=== PATIENT | male | born 1965 ===

== ENCOUNTER 2022-04-04 20:50 | Inpatient (IN) | payer MEDICAID ==
[~2022-04-04] VITALS: Ht 182.9 cm; Wt 61.1 kg
--- NOTE | 2022-04-04 21:39 | NUR ---
NURSE SPOKE WITH PT'S MOTHER, LIZETH, AT [phone] TO CONFIRM PT'S ALLERGIES AND CURRENT MEDICATIONS. MOTHER STATED THAT PT IS SUPPOSED TO BE TAKING RISPERIDONE 4 MG EVERY NIGHT, BUT STATES HE HASN'T TAKEN IT "FOR MONTHS". PT HAS NO ALLERGIES, PER HIS MOTHER. PT IS REFUSING TO COOPERATE WITH NURSING STAFF, WILL NOT GIVEN ANY INFORMATION ABOUT HIS HISTORY, MEDS, ETC.
[2022-04-04] MEDS ORDERED: LORazepam 2 mg/ml vial IM ONE (22:15)
[2022-04-04] MEDS ORDERED: haloperidol lactate 5mg/ml inj IM ONE (22:15)
[2022-04-04] MEDS ORDERED: diphenhydrAMINE 50 mg/ml inj IM ONE (22:15)
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
[2022-04-04 22:43] LABS: BASOPHILS # (AUTO) 0.1 X10'3 (0-0.2); EOSINOPHILS # (AUTO) 0.1 X10'3 (0-0.9); HEMATOCRIT 40.5 % (42.0-52.0); HEMOGLOBIN 13.5 g/dl (14.0-17.9); MEAN CORPUSCULAR HEMOGLOBIN 32.5 PG (27.0-31.0); MEAN CORPUSCULAR HGB CONC 33.4 g/dL (33.0-36.5); RED BLOOD COUNT 4.16 X10'6 (4.70-6.10)
[2022-04-04 22:45] LABS: BASOPHILS % (AUTO) 1.1 % (0-1); LYMPHOCYTES # (AUTO) 2.1 X10'3 (1.1-4.8); LYMPHOCYTES % (AUTO) 16.4 % (21-51); MEAN CORPUSCULAR VOLUME 97.4 FL (78-98); MONOCYTES # (AUTO) 1.5 X10'3 (0-0.9); MONOCYTES % (AUTO) 11.2 % (2-12); NEUTROPHILS # (AUTO) 9.2 X10'3 (1.8-7.7); NEUTROPHILS % (AUTO) 70.3 % (42-75); PLATELET COUNT 324 X10'3 (140-440)
[2022-04-04 22:56] LABS: CLARITY,URINE CLEAR (Clear); COLOR,URINE YELLOW (Yellow); GLUCOSE, URINE NEGATIVE (Neg); KETONES,URINE NEGATIVE (Neg); LEUKOCYTE ESTERASE ,URINE NEGATIVE (Neg); NITRITES, URINE NEGATIVE (Neg); OCCULT BLOOD,URINE NEGATIVE (Neg); PROTEIN,URINE NEGATIVE (Neg); UROBILINOGEN,URINE 0.2 E.U/dL (0.2-1.0)
[2022-04-04 22:58] LABS: ALANINE AMINOTRANSFERASE 28 U/L (12-78); ALBUMIN/GLOBULIN RATIO 1.2 (1.1-1.5); ALKALINE PHOSPHATASE 85 IU/L (46-116); ANION GAP 10 (8-16); ASPARTATE AMINO TRANSFERASE 39 U/L (10-37); BILIRUBIN,TOTAL 0.3 MG/DL (0.1-1.0); BLOOD UREA NITROGEN 19 MG/DL (7-18); CALCIUM 9.1 MG/DL (8.5-10.1); CHLORIDE 105 MMOL/L (99-107); CREATININE 1.12 MG/DL (0.60-1.10); GLUCOSE 111 MG/DL (70-104); POTASSIUM 4.1 MMOL/L (3.5-5.1); SODIUM 142 MMOL/L (135-145); TOTAL CARBON DIOXIDE 27.5 MMOL/L (24-32); TOTAL PROTEIN 7.3 G/DL (6.4-8.2); eGFR 67 ML/MIN
[2022-04-04 23:00] LABS: PLATELET ESTIMATE NORMAL
[2022-04-04 23:03] LABS: UA COLLECTION TYPE URINAL
--- NOTE | 2022-04-04 23:05 | NUR ---
The patient appears to be sleeping
[2022-04-04 23:07] LABS: BURR CELLS 1+
[2022-04-04 23:08] LABS: URINE AMPHETAMINE SCREEN NEGATIVE (Neg); URINE BARBITUATE SCREEN NEGATIVE (Neg); URINE BENZODIAZEPINES SCREEN NEGATIVE (Neg); URINE CANNABINOID SCREEN POSITIVE (Neg); URINE COCAINE SCREEN NEGATIVE (Neg); URINE METHADONE SCREEN NEGATIVE (Neg); URINE OPIATE SCREEN NEGATIVE (Neg); URINE PHENCYCLIDINE SCREEN NEGATIVE (Neg)
[2022-04-04 23:08] LABS: ANISOCYTOSIS 1+
--- NOTE | 2022-04-04 23:53 | NUR ---
BP 125/83
--- NOTE | 2022-04-05 01:23 | NUR ---
The patient appears to be sleeping
--- NOTE | 2022-04-05 03:01 | NUR ---
The patient appears to be sleeping
--- NOTE | 2022-04-05 04:52 | NUR ---
The patient appears to be sleeping
--- NOTE | 2022-04-05 13:01 | NUR ---
Althea from [facility] called for a nurse to nurse. Pt requesting a shower, given shower cap and wiped to clean up in bathroom.
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
--- NOTE | 2022-04-05 19:43 | NUR ---
The patient has been resting on his bed and can occassionally having conversations with people who are not there. He is declining offer of medications at this time.
--- NOTE | 2022-04-05 20:39 | NUR ---
The patient appears to be sleeping
--- NOTE | 2022-04-05 22:04 | NUR ---
The patient appears to be sleeping
--- NOTE | 2022-04-05 23:37 | NUR ---
The patient appears to be sleeping but restlessly at times
--- NOTE | 2022-04-06 01:32 | NUR ---
The patient has been up and down in bed. He is quiet and pleasant
--- NOTE | 2022-04-06 05:20 | NUR ---
The patient has been resting on his bed but awake. He has slept poorly during the night
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
[2022-04-06] MEDS: nicotine 14mg patch - 24hr TD SCH (08:22)
--- NOTE | 2022-04-06 10:10 | NUR ---
The patient is resting on his bed watching tv and drinking coffee. At times he can be heard talking to people who are not there. He has not had any threatening behaviors.
--- NOTE | 2022-04-06 10:53 | NUR ---
The patient is increasingly restless. He is wanting to go home. He is aware that he is on a 5150 hold and doesn't want to have anything to do with the "gang" here.
--- NOTE | 2022-04-06 12:24 | NUR ---
Pt sitting up in bed, eating lunch. Pt repeatedly asking questions about when he can leave, making statements that he needs to speak to his laywer, etc.
--- NOTE | 2022-04-06 14:00 | NUR ---
Pt laying supine, eyes are closed. Respirations are even and unlabored. Pt in no acute distress.
--- NOTE | 2022-04-06 15:54 | NUR ---
Phone call from [facility], pt has been accepted to center for behavioral health by Dr. Valdes at 1545. Anticipated acceptance time is 1999 this evening.
--- NOTE | 2022-04-06 16:36 | NUR ---
Pt sitting up in bed watching television. He called his mother a little bit ago. Pt in no acute distress.
--- NOTE | 2022-04-06 17:33 | NUR ---
Pt up to the restroom. Pt now back in bed, sitting up, watching television.
--- NOTE | 2022-04-06 18:10 | NUR ---
Pt sitting up in bed eating dinner. Pt in no acute distress.
--- NOTE | 2022-04-06 20:27 | NUR ---
Received patient at 1900. Patient was pacing around unit asking when he could go home. Patient became agitated when told he could not leave yet. Patient has been accepted upstairs to the mental health floor. Patient was moved to main ER due to short staff. [facility] nurse came down to talk to patient about going upstairs and patient was receptive and approved. Currently working on discharging patient to [facility] behavoiral health floor.
--- NOTE | 2022-04-06 20:52 | NUR ---
SPOKE TO NURSE OF THIS PT. (GASTON OGLESBY) SHE STATED THAT STAFF ATTEMPTED TO MEDICATE WITH PO ATIVAN EARLIER AND PT. REFUSED.
[2022-04-06 21:00] VITALS: BP 167/98
[2022-04-06] MEDS ORDERED: OLANZapine 5mg rapidly disint. tablet PO ONE (21:05)
[2022-04-06] MEDS ORDERED: acetaminophen 325mg tablet PO PRN ×2 (21:35)
[2022-04-06] MEDS ORDERED: magnesium hydroxide 30ml (MOM) UD suspension PO PRN (21:35)
[2022-04-06] MEDS ORDERED: loperamide 2mg capsule PO PRN (21:35)
[2022-04-06] MEDS ORDERED: NICOTINE POLACRILEX 2 MG LOZENGE BC PRN (21:35)
[2022-04-06] MEDS ORDERED: mag hydrox/Alum hydrox/simeth 30ml oral suspension PO PRN (21:35)
[2022-04-06] MEDS: traZODone 50mg tablet PO PRN (22:38)
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
[2022-04-07 04:45] VITALS: BP 130/80
--- NOTE | 2022-04-07 04:45 | NUR ---
PT woke up and asked if staff could check his blood pressure. RN manually checked BP and HR, 130/80, HR 98. PT states "I just wondered because for the past few days I have just been chain smoking and drinking coffee, because people are trying to kill me. I hope they left a hole in the pool tarp for my mom to get out of." Pt given a hot tea and water, he is able then to sit quietly in his room and realx after some reassurance.
[2022-04-07] MEDS ORDERED: NO HOME MEDS (06:08)
[2022-04-07 07:27] VITALS: BP 125/81
[2022-04-07] MEDS ORDERED: nicotine 21mg patch - 24 hr TD SCH (08:00)
[2022-04-07] MEDS: nicotine 14mg patch - 24hr TD SCH (08:11)
[2022-04-07 10:20] LABS: HEMOGLOBIN A1C 5.7 % (4.5-6.2)
[2022-04-07 10:22] LABS: CHOL/HDL RATIO 2.1 (0.00-4.99); CHOLESTEROL 168 MG/DL (0-200); HDL CHOLESTEROL 79 MG/DL (35-60); LDL CHOLESTEROL 67 MG/DL (50-100); TRIGLYCERIDES 103 MG/DL (20-135)
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
[2022-04-07 19:32] VITALS: BP 159/91
[2022-04-07] MEDS: traZODone 50mg tablet PO PRN (22:26)
[2022-04-07] MEDS: OLANZapine 5mg rapidly disint. tablet PO SCH (22:26)
--- NOTE | 2022-04-08 02:03 | NUR ---
Nursing Progress Note: Problem: 2790 reads: Adiel presents was paranoia with thoughts his mother is being gang banged, murdered, abused, also noting they are trying to kill him. PT is unable to develop viable plan for basic needs and safety. Response: Pt was visible on the unit wearing headphones and walking. He requests to shower, which he does and changes his scrubs. He eats snack and doesn't make any delusional statements, but lynnette appear to be internally preoccupied. He gets slightly agitated when you try to speak to him and he needs to remove his headphones in order to hear you. He is seen muttering under his breath at times. He does agree to take HS zyprexa tonight, which he had refused the previous night. He also utilizes PRN trazodone with good effect. Plan: Patient requires crisis interruption and stabilization with medication management.
[2022-04-08] MEDS: OLANZapine 5mg rapidly disint. tablet PO SCH ×2 (07:34→20:13)
[2022-04-08] MEDS: nicotine 14mg patch - 24hr TD SCH (07:34)
[2022-04-08 08:00] VITALS: BP 129/84
--- NOTE | 2022-04-08 17:13 | NUR ---
Nursing Progress Note: Problem: Patient is a 56 year old male admitted to [facility] on 04/06/22. Patient is diagnosed with Paranoid Schizophrenia. Patient is here for Grave Disability on a 5150. Interventions: Patient Assessment and Patient Interview completed when patient was awake at 0725 this morning. Found patient in his bed wearing headphones. Patient took medications without hesitation. Response: Patient informed he is not hearing any voices today, and he is alert & oriented. Patient has been ambulating in the hallway, ate both meals in the Community Room, and participated in snack times. Patient is calm and cooperative. Plan: Patient continues to require crisis interruption and stabilization with medication interruption and monitoring in a safe and therapeutic environment. Patient has a scheduled court date on 04/09/22.
[2022-04-08 19:54] VITALS: BP 148/93
[2022-04-08] MEDS: traZODone 50mg tablet PO PRN (20:13)
--- NOTE | 2022-04-09 02:44 | NUR ---
Nursing Progress Note: Problem: 0400 reads: Adiel wood was paranoia with thoughts his mother is being gang banged, murdered, abused, also noting they are trying to kill him. PT is unable to develop viable plan for basic needs and safety. Interventions: Medication administration, Provided 1:1 assessment, provide pt. with a safe and therapeutic environment, clear communication, active listening and positive encouragement. Response: Patient paces the halls with headphones on. He looks angry and mutters while pacing. Patient doesn't want to remove headphones to talk. He is surly and irritable when he doesn't want to be bothered. Patient took a shower tonight and appears clean now. Still doesn't want to answer questions, "you all ask the same questions I don't want to answer." Patient accepted his HS medication while snacking. Asked if he could have Trazodone at ~2200. Patient went to bed soon after. It was effective aeb him falling asleep soon after receiving it. Plan: Patient requires crisis interruption and stabilization with medication management.
[2022-04-09 08:03] VITALS: BP 149/82
[2022-04-09] MEDS: nicotine 14mg patch - 24hr TD SCH (08:39)
[2022-04-09] MEDS: OLANZapine 5mg rapidly disint. tablet PO SCH ×2 (08:43→20:16)
[2022-04-09 08:48] LABS: BASOPHILS # (AUTO) 0.1 X10'3 (0-0.2); EOSINOPHILS # (AUTO) 0.3 X10'3 (0-0.9); EOSINOPHILS % (AUTO) 3.2 % (0-6); HEMOGLOBIN 15.4 g/dl (14.0-17.9); RED CELL DISTRIBUTION WIDTH 14.3 % (11.5-14.5)
[2022-04-09 08:50] LABS: BASOPHILS % (AUTO) 1.3 % (0-1); LYMPHOCYTES # (AUTO) 2.4 X10'3 (1.1-4.8); LYMPHOCYTES % (AUTO) 29.4 % (21-51); MEAN CORPUSCULAR HEMOGLOBIN 32.7 PG (27.0-31.0); MEAN CORPUSCULAR HGB CONC 33.4 g/dL (33.0-36.5); MEAN CORPUSCULAR VOLUME 97.8 FL (78-98); MEAN PLATELET VOLUME 9.1 FL (7.4-10.4); MONOCYTES % (AUTO) 12.7 % (2-12); NEUTROPHILS # (AUTO) 4.4 X10'3 (1.8-7.7); NEUTROPHILS % (AUTO) 53.4 % (42-75); PLATELET COUNT 356 X10'3 (140-440); WHITE BLOOD COUNT 8.2 X10'3 (4.5-11.0)
[2022-04-09 09:03] LABS: ALANINE AMINOTRANSFERASE 25 U/L (12-78); ALBUMIN/GLOBULIN RATIO 1.1 (1.1-1.5); ALKALINE PHOSPHATASE 91 IU/L (46-116); ANION GAP 7 (8-16); ASPARTATE AMINO TRANSFERASE 24 U/L (10-37); BILIRUBIN,TOTAL 0.2 MG/DL (0.1-1.0); BLOOD UREA NITROGEN 19 MG/DL (7-18); CALCIUM 8.8 MG/DL (8.5-10.1); CHLORIDE 105 MMOL/L (99-107); CREATININE 1.19 MG/DL (0.60-1.10); GLUCOSE 140 MG/DL (70-104); POTASSIUM 4.6 MMOL/L (3.5-5.1); SODIUM 140 MMOL/L (135-145); TOTAL CARBON DIOXIDE 28.2 MMOL/L (24-32); TOTAL PROTEIN 7.7 G/DL (6.4-8.2); eGFR 63 ML/MIN
[2022-04-09 09:12] LABS: LARGE PLATELETS FEW; PLATELET ESTIMATE NORMAL
--- NOTE | 2022-04-09 09:42 | NUR ---
CM Presenting Issues: Pt's 5150 expires this evening, pt needs dcp assessment. Interventions: Clinician attempted to engage pt to assess d/c readiness. Pt was wearing headset and declined to participate in dcp discussion at this time. Chart review suggests that pt is currently not established w/any outpatient service providers in [facility]. Plan: Clinician to staff case @ MDT consultation. Hattie Jackson LCSW Addendum: 04/09/22 at 0957 by Hattie Jackson SS Amended: Links added.
--- NOTE | 2022-04-09 17:31 | NUR ---
Nursing Progress Note: Problem: Patient is a 56 year old male admitted to [facility] on 04/06/22. Patient is diagnosed with Paranoid Schizophrenia. Patient is here for Grave Disability on a 5150. Interventions: Patient up ambulating in hallway at 0600, wearing headphones. Patient is observed speaking out loud, and using the f word. Patient appeared to be responding to internal stimuli. Patient Assessment and Patient Interview completed. Patient states Im going home today. Informed patient that he would be seen by Dr. Valdes sometime today, and he will discuss that with you. Patient took medications without hesitation. Response: Patient was angry and spoke angrily towards staff during today because he was not going home per Dr. Valdes. Dr. Valdes informed the patient directly this morning that he would not be going home today. Patient continued to ambulate in the hallways wearing the headphones throughout the rest of the day. Patient went to the dining room for meals and participated in snacks. Patient encouraged to go to Group Meeting today at 1115. Patient laid in bed and did not attend the meeting. Plan: Patient continues to require crisis interruption and stabilization with medication interruption and monitoring in a safe and therapeutic environment. Patient has a scheduled court date on 04/09/22.
[2022-04-09 19:34] VITALS: BP 152/98
[2022-04-09] MEDS: traZODone 50mg tablet PO PRN (21:16)
[2022-04-10] MEDS: traZODone 50mg tablet PO PRN ×2 (00:32→19:53)
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
--- NOTE | 2022-04-10 07:27 | NUR ---
Initial: Pt admitted w/ paranoid schizophrenia per ERM. Currently on Regular diet w/ double protein TID per diet order, eating mostly 100% of meals and participating in snacks per documentation; greatly exceeding est needs at this time. Recommend discontinuing double protein as it is not indicated. [facility] 04/09. Will continue to monitor Recs: 1. Continue Regular diet 2. Discontinue double protein; not indicated; pt greatly exceeding needs 3. Bowel care PRN 4. Weekly wts Addendum: 04/10/22 at [address] Amended: Links added.
[2022-04-10 08:00] VITALS: BP 133/97
[2022-04-10] MEDS: OLANZapine 5mg rapidly disint. tablet PO SCH ×2 (08:11→19:54)
[2022-04-10] MEDS: nicotine 14mg patch - 24hr TD SCH (08:16)
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
--- NOTE | 2022-04-10 17:40 | NUR ---
Nursing Progress Note: Problem: Patient is a 56 year old male admitted to [facility] on 04/06/22. Patient is diagnosed with Paranoid Schizophrenia. Patient is here for Grave Disability on a 5250. Interventions: According to workforce planner, the patient has been up ambulating in the hallway since 0300. Patient was wearing headphones and walking in the hallway all day. Patient did not take a rest period and relax on his bed. Patient has verbalized anger at times. Example is that I had nursing scissors out to open packages of medications, and we walked up and stated Put those away, you are scaring all of the surgery patients. Patient has been extremely delusional all day and speaking to internal voices during this entire day. Patient approaches peers or staff and makes an inappropriate statement regarding the person he is speaking to, then walks away. Response: Patient was angry and spoke angrily towards staff during today because he was not going home per Dr. Valdes. Dr. Valdes informed the patient directly this morning that he would not be going home today. Patient continued to ambulate in the hallways wearing the headphones throughout the rest of the day. Patient went to the dining room for meals and participated in snacks. Patient encouraged to go to Group Meeting today at 1115. Patient laid in bed and did not attend the meeting. Plan: Patient continues to require crisis interruption and stabilization with medication interruption and monitoring in a safe and therapeutic environment. End of Hold 04/23/2022.
[2022-04-10 19:40] VITALS: BP 155/99
--- NOTE | 2022-04-11 05:06 | NUR ---
Nursing Progress Note: Problem: Patient is a 56 year old male admitted to [facility] on 04/06/22. Patient is diagnosed with Paranoid. Response: Patient was pleasant and cooperative throughout night. Allowed minimal assessment and took PM medications willingly. Although he received Trazodone 100mg, he only slept for 1.5 hours. He repeatedly visited the nursing station asking for more medicine to sleep. At 4am, he also asked to take a shower, he was advised to wait until after 8am. Patient frequently ambulated around the unit throughout night due to not being able to sleep. No irritation or agitation noticed. Plan: Patient continues to require crisis interruption and stabilization with medication interruption and monitoring in a safe and therapeutic environment. End of Hold 04/23/2022. Addendum: 04/11/22 at 0536 by Laura Baum RN Interventions: Maintained a safe and supportive environment, provided clear and simple instructions, ensured contract for safety, attempted to orient to reality, provided active listening and positive encouragement, monitored behaviors and provided redirection as needed, and maintained Q 15min safety checks.
[2022-04-11 07:38] VITALS: BP 168/108
[2022-04-11] MEDS: OLANZapine 5mg rapidly disint. tablet PO SCH (07:47)
[2022-04-11] MEDS: nicotine 14mg patch - 24hr TD SCH (07:47)
[2022-04-11 08:15] VITALS: BP 138/110
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
[2022-04-11 19:36] VITALS: BP 142/81
[2022-04-11] MEDS: OLANZapine 2.5MG tablet PO SCH (20:47)
[2022-04-11] MEDS: traZODone 50mg tablet PO PRN (22:12)
--- NOTE | 2022-04-12 00:12 | NUR ---
Pt still awake after administration of Trazadone, pt only slept 1.25 hours the night before. OCP contacted and order for Seroquel 200 mg now given to help with sleep.
[2022-04-12] MEDS ORDERED: quetiapine 100mg tablet PO ONE (00:15)
--- NOTE | 2022-04-12 04:36 | NUR ---
Nursing Progress Note: Adiel Problem: Pt was reportedly brought to the ER by law enforcement after threatening members of his family and throwing a spear at law enforcement and making delusional statements about his family being . Displays paranoia with thoughts his mother is being gang banged, murdered, abused, also noting they are trying to kill him. PT is unable to develop viable plan for basic needs and safety. Intervention: Medication given as ordered. Provided with a safe and therapeutic environment, clear communication, active listening and positive encouragement. Response: Patient was found pacing the coughlin listening to headphones asking to take a shower. Patient took a shower and went into community room to watch tv. Patient was observed pacing around unit before he came into observation room asking the staff which side of the war they were on. Patient continued to make statements like " the Russians are the good guys", the Russians are trying to protect [place] from the Nazis. The patient became more and more agitated as he talked about the war and Russians. Nurse able to eventually redirect the patient. Patient participated in snack and socialized with other patients. When nurse gave patient his night medications he asked how long he would be on 10 mg Zyprexa and stated it was too high. Nurse attempted to give patient prn trazodone to help him sleep but patient refused. Patient was observed again pacing around unit at 2300 and again nurse attempted to give trazodone. Patient accepted medication and returned to pacing. Patient got up again at 0200 and patient was give a one time Seroquel 200mg to help him to sleep. Plan: Patient continues to require crisis interruption and stabilization with medication management and monitoring in a safe and therapeutic environment.
[2022-04-12 06:57] VITALS: BP 146/95
[2022-04-12] MEDS: OLANZapine 5mg rapidly disint. tablet PO SCH (07:28)
[2022-04-12] MEDS: nicotine 14mg patch - 24hr TD SCH (07:29)
[2022-04-12 08:00] VITALS: BP 146/95
--- NOTE | 2022-04-12 13:32 | NUR ---
5250 UPHELD FOR GD
--- NOTE | 2022-04-12 16:28 | NUR ---
Nursing Progress Note: Adiel Problem: Pt was reportedly brought to the ER by law enforcement after threatening members of his family and throwing a spear at law enforcement and making delusional statements about his family being . Displays paranoia with thoughts his mother is being gang banged, murdered, abused, also noting they are trying to kill him. PT is unable to develop viable plan for basic needs and safety. Pt. paces the unit and found to be talking to himself. Intervention: Medications administered, 1:1 assessment. Marketing Secretary continues to promote independence, to provide pt. with a safe and therapeutic environment, clear communication, active listening and positive encouragement, and encouraged to participate in group therapy. Response: Pt. compliant with medication, 1:1 assessment completed , and he denies SI, HI, A/VH, he states he was admitted d/t my sister is gangbanging and his discharge plans to move to [facility] in [facility], and work in either [place] or [place] Pt. requested a shower and received one. He paced the unit wearing headphones and requested see the doctor numerous times re his hold. Pt. ate his meals in the main dining room with cohorts and socially engages minimally. Marketing Secretary observed pt talking to himself in a negative tone. Pt. denies anxiety, and remained in common areas throughout the shift. Plan: Patient continues to require crisis interruption and stabilization with medication management and monitoring in a safe and therapeutic environment.
[2022-04-12 20:00] VITALS: BP 150/93
[2022-04-12] MEDS: OLANZapine 2.5MG tablet PO SCH (20:04)
[2022-04-12] MEDS: traZODone 50mg tablet PO PRN (22:17)
--- NOTE | 2022-04-13 01:25 | NUR ---
Nursing Progress Note: Adiel Problem: Pt was reportedly brought to the ER by law enforcement after threatening members of his family and throwing a spear at law enforcement and making delusional statements about his family being . Displays paranoia with thoughts his mother is being gang banged, murdered, abused, also noting they are trying to kill him. PT is unable to develop viable plan for basic needs and safety. Pt. paces the unit and found to be talking to himself. Intervention: Medications administered, 1:1 assessment. Ultrasonic Tester continues to promote independence, to provide pt. with a safe and therapeutic environment, clear communication, active listening and positive encouragement, and encouraged to participate in group therapy. Response: Pt. compliant with medication, 1:1 assessment completed, and he denies SI, HI, A/VH. Pt states that he is very depressed about being here and really wants to leave. Pt observed to be pacing the unit with headphones on stopping and looking down at the ground. Pt up for snacks and took all HS medications without issues. Plan: Patient continues to require crisis interruption and stabilization with medication management and monitoring in a safe and therapeutic environment.
[2022-04-13] MEDS: OLANZapine 5mg rapidly disint. tablet PO SCH (07:01)
[2022-04-13 07:05] VITALS: BP 141/95
[2022-04-13] MEDS: nicotine 14mg patch - 24hr TD SCH (07:47)
[2022-04-13] MEDS ORDERED: risperiDONE 2mg tablet PO ONE (14:40)
--- NOTE | 2022-04-13 17:20 | NUR ---
Nursing Progress Note: Adiel Problem: Pt was reportedly brought to the ER by law enforcement after threatening members of his family and throwing a spear at law enforcement and making delusional statements about his family being . Displays paranoia with thoughts his mother is being gang banged, murdered, abused, also noting they are trying to kill him. PT is unable to develop viable plan for basic needs and safety. Pt. paces the unit, talking to himself, and yelling out profanities. Pt. presented with flight of ideas and verbal agitation to staff and cohorts. Intervention: Medications administered, 1:1 assessment. Warehouse Analyst continues to promote independence, to provide pt. with a safe and therapeutic environment, clear communication, active listening and positive encouragement, and encouraged to participate in group therapy. Response: Pt. received pacing the unit and mumbling to himself. He approached lead technical writer shortly after in an agitated mood stating I got to go I have to go to the bank, I have to go to court, and see my doctor in [place] Pt. required redirection and calming communication several times. He was compliant with medication, 1:1 assessment completed , and he denies SI, HI, A/VH, he minimizes MH needs and states he was admitted d/t sisters gang and his discharge plans is go to the Crisis center, then move to [facility] and work in either [place] or [place] Pt. received N.O respiradol. Numerous episodes of agitation prior to new med started. He paced the unit most of shift. Pt. ate his meals in the main dining room with cohorts. Plan: Patient continues to require crisis interruption and stabilization with medication management and monitoring in a safe and therapeutic environment.
[2022-04-13 20:00] VITALS: BP 166/99
[2022-04-13] MEDS: risperiDONE 2mg tablet PO SCH (20:25)
[2022-04-13] MEDS: OLANZapine 2.5MG tablet PO SCH (20:25)
[2022-04-13] MEDS: traZODone 50mg tablet PO PRN ×2 (21:29→23:25)
--- NOTE | 2022-04-14 01:56 | NUR ---
Nursing Progress Note: Adiel Problem: Pt was reportedly brought to the ER by law enforcement after threatening members of his family and throwing a spear at law enforcement and making delusional statements about his family being . Displays paranoia with thoughts his mother is being gang banged, murdered, abused, also noting they are trying to kill him. PT is unable to develop viable plan for basic needs and safety. Pt. paces the unit, talking to himself, and yelling out profanities. Pt. presented with flight of ideas and verbal agitation to staff and cohorts. Intervention: Medications administered, 1:1 assessment. Power Hair Clipper continues to promote independence, to provide pt. with a safe and therapeutic environment, clear communication, active listening and positive encouragement, and encouraged to participate in group therapy. Response: Pt. received pacing the unit with headphones on. He states he is doing well and might be going to the crisis unit. He was later observed coloring in a book then showed it to this administrative underwriter and states this character, I know this person personally. He walked away laughing. He denies MH symptoms and participated in snacks. He took all HS medications without issue. Pt requested trazadone with HS medications and received 100MG of trazadone. Pt up at 2330 requesting his second dose of trazadone. Second dose given with good effect. Plan: Patient continues to require crisis interruption and stabilization with medication management and monitoring in a safe and therapeutic environment.
--- NOTE | 2022-04-14 03:39 | NUR ---
Sleep Note: Pt up at 0315 requesting more sleeping aids. Told the pt he didn't have anymore, the pt began pacing the unit with headphones.
[2022-04-14] MEDS: risperiDONE 2mg tablet PO SCH ×2 (07:54→20:43)
[2022-04-14] MEDS: nicotine 14mg patch - 24hr TD SCH (07:54)
[2022-04-14 08:00] VITALS: BP 143/96
--- NOTE | 2022-04-14 16:15 | NUR ---
Nursing Progress Note: Adiel Problem: Pt was reportedly brought to the ER by law enforcement after threatening members of his family and throwing a spear at law enforcement and making delusional statements about his family being . Displays paranoia with thoughts his mother is being gang banged, murdered, abused, also noting they are trying to kill him. PT is unable to develop viable plan for basic needs and safety. Intervention: Medication given as ordered with no adverse side effects noted. Provided with a safe and therapeutic environment, clear communication, active listening and positive encouragement. Response: Patient is awake at the start of the shift. He paces the unit and wears headphones. Answers direct questions but speech becomes disorganized and tangential. Appears paranoid and makes bizzare delusional statements. Plan: Patient continues to require crisis interruption and stabilization with medication management and monitoring in a safe and therapeutic environment.
[2022-04-14 20:00] VITALS: BP 135/78
[2022-04-14] MEDS: OLANZapine 2.5MG tablet PO SCH (20:43)
[2022-04-14] MEDS: traZODone 50mg tablet PO PRN (21:21)
[2022-04-15] MEDS: traZODone 50mg tablet PO PRN ×2 (02:53→21:25)
--- NOTE | 2022-04-15 03:54 | NUR ---
Problem: The patient was admitted after he was brought in by D after neighbors called the police because he was off his psychiatric medications and was agitated and psychotic and making threats toward his family members and the police Intervention: One to one with the patient to assess for severity of psychotic symptoms, level of agitation and risk to harm others. Assessed for ability to formulate a plan for food, intermediate or clothing if her were to be discharged from the hospital. Assessed for medication side effects. Assessment: The patient was pleasant when approached for the evening assessment but he could be observed when up on the unit mumbling angrily to himself. When asked if he was hearing voices he denied that. He has poor insight and stated that he did at one time have schizophrenia when he lived in [place] but that was because of the conditions there. He had a disorganized plan for when he left the hospital where he would leave the area and make a lot of money but it was difficult to follow and highly improbable. He was medication compliant and he denied medication side effects. He has not had any threatening behaviors. He did have problems sleeping and had both prn doses of Trazodone. Plan: Continue to assess for disordered thought processes and medicate prn for agitation and insomnia.
[2022-04-15] MEDS: risperiDONE 2mg tablet PO SCH ×2 (07:01→20:59)
[2022-04-15] MEDS: nicotine 14mg patch - 24hr TD SCH (07:01)
[2022-04-15 08:00] VITALS: BP 122/74
--- NOTE | 2022-04-15 17:11 | NUR ---
Nursing Progress Note: Adiel Problem: Pt was reportedly brought to the ER by law enforcement after threatening members of his family and throwing a spear at law enforcement and making delusional statements about his family being . Displays paranoia with thoughts his mother is being gang banged, murdered, abused, also noting they are trying to kill him. PT is unable to develop viable plan for basic needs and safety. Intervention: Medication given as ordered with no adverse side effects noted. Provided with a safe and therapeutic environment, clear communication, active listening and positive encouragement. Response: Patient is awake pacing the unit at the start of the shift. He is noted talking to himself and making growling noises to himself as he paces. Appears somewhat angry and paranoid AEB facial expressions and the way he glancing around. He is able to answer most questions appropriately but speech becomes disorganized, tangential and delusional at times. Patient believes he is discharging in 2 days. He is educated on the discharge process. Patient also makes statements about gangs that have been trying to hurt him. Blood glucose is 114 in the morning. Plan: Patient continues to require crisis interruption and stabilization with medication management and monitoring in a safe and therapeutic environment.
[2022-04-15 19:22] VITALS: BP 139/92
[2022-04-15] MEDS: OLANZapine 2.5MG tablet PO SCH (21:01)
--- NOTE | 2022-04-16 02:20 | NUR ---
Nursing Progress Note: Adiel Problem: Pt was reportedly brought to the ER by law enforcement after threatening members of his family and throwing a spear at law enforcement and making delusional statements about his family being . Displays paranoia with thoughts his mother is being gang banged, murdered, abused, also noting they are trying to kill him. PT is unable to develop viable plan for basic needs and safety. Intervention: Medication given as ordered with no adverse side effects noted. Provided with a safe and therapeutic environment, clear communication, active listening and positive encouragement. Response: Pt on exercise bike at start of shift, denies any needs. Paced in halls wearing headphones and talking to himself. Pt denies MH symptoms. Wants to be discharged says he will be going to the [facility]. Pleasant and cooperative with care took all meds. Plan: Patient continues to require crisis interruption and stabilization with medication management and monitoring in a safe and therapeutic environment.
[2022-04-16] MEDS: traZODone 50mg tablet PO PRN ×2 (03:51→20:05)
[2022-04-16 07:34] VITALS: BP 129/90
[2022-04-16] MEDS: risperiDONE 2mg tablet PO SCH ×2 (08:07→20:05)
[2022-04-16] MEDS: nicotine 14mg patch - 24hr TD SCH (08:08)
--- NOTE | 2022-04-16 16:31 | NUR ---
Nursing Progress Note: Problem: Patient was admitted to [facility] on 04/06/22 on a 5150 hold. Pt was reportedly brought to the ER by law enforcement after threatening members of his family and throwing a spear at law enforcement and making delusional statements about his family being . Displays paranoia with thoughts his mother is being gang banged, murdered, abused, also noting they are trying to kill him. PT is unable to develop viable plan for basic needs and safety. Intervention: Patients Blood Sugar was checked via MD order for the second of 3 days. Patient's fasting blood sugar was 94 at 0725. Patient Assessment and 1:1 Patient Interview was completed. Patient took medications without hesitation. Response: Patients fasting blood sugar was 94. Patient appears to exhibit short term memory at times by asking for something, then he continues to make the same request over and over or ask When are they coming to talk to me, or when is the DrMagnolia going to see me? The patient makes the same requests on nearly every lap he ambulates in the hallway. He asks multiple employees, and does not understand to ask the same person for any updates that they may have about when these tasks might get done. The patients perception is that he is asking for things that he would like resolved in a few minutes. Plan: Patient continues to require crisis interruption and stabilization with medication management and monitoring in a safe and therapeutic environment.
[2022-04-16 19:44] VITALS: BP 143/86
[2022-04-16] MEDS: OLANZapine 2.5MG tablet PO SCH (20:05)
--- NOTE | 2022-04-16 22:53 | NUR ---
Nursing Progress Note: Problem: Pt was reportedly brought to the ER by law enforcement after threatening members of his family and throwing a spear at law enforcement and making delusional statements about his family being . Displays paranoia with thoughts his mother is being gang banged, murdered, abused, also noting they are trying to kill him. PT is unable to develop viable plan for basic needs and safety. Intervention: Medication given as ordered with no adverse side effects noted. Provided with a safe and therapeutic environment, clear communication, active listening and positive encouragement. Response: Pt was in the rec room at change of shift watching tv. Pt states "they're finally gonna get me out of here." Pt is hoping to be discharged soon. Pt is pleasant and noted to be socializing with peers. Observed talking to himself minimally. Pt took HS meds and requested prn trazodone for sleep at HS. Plan: Patient continues to require crisis interruption and stabilization with medication management and monitoring in a safe and therapeutic environment.
--- NOTE | 2022-04-17 07:13 | NUR ---
Reassessment: Currently on Regular diet w/ double protein TID per diet order, eating mostly 100% of meals and participating in snacks per documentation; greatly exceeding est needs at this time. Recommend discontinuing double protein as it is not indicated. [facility] 04/15. Will continue to monitor. Recs: 1. Continue Regular diet 2. Discontinue double protein; not indicated; pt greatly exceeding needs 3. Bowel care PRN 4. Weekly wts Addendum: 04/17/22 at [address] Amended: Links added.
[2022-04-17] MEDS: risperiDONE 2mg tablet PO SCH ×2 (07:34→20:09)
[2022-04-17] MEDS: nicotine 14mg patch - 24hr TD SCH (07:35)
[2022-04-17 08:00] VITALS: BP 127/87
--- NOTE | 2022-04-17 10:54 | NUR ---
CM-Pre-dcp Presenting Issues: Pt's on 5249 as he continues experience functional impairments due to sxs associated w/a SMI; pt is currently unable to articulate/participate in dcp activities as pt continues to struggle w/understanding how to meet his basic needs for day-day survival, believes that he does not have to pay for usp, food or clothing. Plan: Clinician had t/c w/[facility] DCP to f/u on [facility] referral for pt, per t/c [facility] is reviewing referral and will contact [facility] after they completed their review. Hattie Jackson LCSW Addendum: 04/17/22 at 1122 by Hattie Jackson SS Amended: Links added.
--- NOTE | 2022-04-17 15:10 | NUR ---
Linkages Presenting Issues: Pt completed [facility] interview and was accepted there upon d/c. Interventions: Clinician requested a PPD and informed attending MD of [facility] acceptance requesting that meds be finalized & sent to [facility] Plan: Clinician to obtain signed Physician's Report, complete Functional Capacity assessment and fax to [facility]. Hattie Jackson LCSW Addendum: 04/17/22 at 1514 by Hattie Jackson SS Amended: Links added.
--- NOTE | 2022-04-17 17:29 | NUR ---
Nursing Progress Note: Problem: Pt was reportedly brought to the ER by law enforcement after threatening members of his family and throwing a spear at law enforcement and making delusional statements about his family being . Displays paranoia with thoughts his mother is being gang banged, murdered, abused, also noting they are trying to kill him. PT is unable to develop viable plan for basic needs and safety. Intervention: Medication given as ordered with no adverse side effects noted. Provided with a safe and therapeutic environment, clear communication, active listening and positive encouragement. Response: Pt was up and walking the halls at change of shift this AM. He repeatedly approaches staff asking for the doctor or his social service assistant throughout the day. He denies A/VH. No delusional statements made to this RN. He has an interview this afternoon with [facility] and was accepted. Plan: Patient continues to require crisis interruption and stabilization with medication management and monitoring in a safe and therapeutic environment.
[2022-04-17] MEDS ORDERED: olanzapine 10mg tablet PO PRN (17:50)
[2022-04-17] MEDS ORDERED: hydrOXYzine 25 MG tablet PO PRN (17:50)
[2022-04-17 19:12] VITALS: BP 128/85
--- NOTE | 2022-04-17 20:51 | NUR ---
Nursing Progress Note: Problem: Pt was reportedly brought to the ER by law enforcement after threatening members of his family and throwing a spear at law enforcement and making delusional statements about his family being . Displays paranoia with thoughts his mother is being gang banged, murdered, abused, also noting they are trying to kill him. PT is unable to develop viable plan for basic needs and safety. Intervention: Medication given as ordered with no adverse side effects noted. Provided with a safe and therapeutic environment, clear communication, active listening and positive encouragement. Response: Pt was pacing in the halls and appeared to be crying at change of shift. Asked patient how he is doing and he asks about "section 8" housing. Pt states "I just want to get my own apartment." Pt is anxious and was offered PRN atarax w/good effect. Pt had a snack, took HS meds and spent evening socializing w/peers and watching tv before going to bed. Plan: Patient continues to require crisis interruption and stabilization with medication management and monitoring in a safe and therapeutic environment. Addendum: 04/18/22 at 0407 by Frances Gonsales RN Pt woke up at approx 0330 and is pacing in the hallways, then requests water and "sleeping pill" pt states he is trying to drink a lot of water to "flush the toxins from smoking." Pt was offered prn ativan and went back to sleep.
[2022-04-18] MEDS: nicotine 14mg patch - 24hr TD SCH (07:10)
[2022-04-18] MEDS: risperiDONE 2mg tablet PO SCH ×2 (07:10→20:27)
[2022-04-18 07:22] VITALS: BP 118/79
[2022-04-18] MEDS ORDERED: TRAZ150T78 PO (10:16)
[2022-04-18] MEDS ORDERED: RISP4TAB73 PO (10:16)
[2022-04-18] MEDS ORDERED: NICO-631 TD (10:16)
[2022-04-18] MEDS ORDERED: HYDR50TA65 PO (10:16)
[2022-04-18] MEDS ORDERED: NICO-907 BC (10:16)
--- NOTE | 2022-04-18 17:05 | NUR ---
Nursing Progress Note: Adiel Problem: Pt was reportedly brought to the ER by law enforcement after threatening members of his family and throwing a spear at law enforcement and making delusional statements about his family being . Displays paranoia with thoughts his mother is being gang banged, murdered, abused, also noting they are trying to kill him. PT is unable to develop viable plan for basic needs and safety. Intervention: Medication given as ordered with no adverse side effects noted. Provided with a safe and therapeutic environment, clear communication, active listening and positive encouragement. Response: Patient is awake in his room at the start of the shift. Paces the unit and drinks several cups of coffee. Denies any mental health symptoms but is noted talking to himself frequently. Patient is looking forward to his discharge tomorrow to the [facility]. Patient is cooperative with assessment and medications. Paces the unit with headphones on for much of the shift. Minimizes mental health symptoms but appears paranoid and makes bizarre statements. Plan: Patient continues to require crisis interruption and stabilization with medication management and monitoring in a safe and therapeutic environment.
[2022-04-18 19:33] VITALS: BP 131/94
--- NOTE | 2022-04-19 04:10 | NUR ---
Nursing Progress Note: Adiel Problem: Pt was reportedly brought to the ER by law enforcement after threatening members of his family and throwing a spear at law enforcement and making delusional statements about his family being . Displays paranoia with thoughts his mother is being gang banged, murdered, abused, also noting they are trying to kill him. PT is unable to develop viable plan for basic needs and safety. Intervention: Medication given as ordered with no adverse side effects noted. Provided with a safe and therapeutic environment, clear communication, active listening and positive encouragement. Response: Patient was found pacing the halls responding to internal stimuli and talking to other patients. Patient mentions he was glad to finally be getting out of here. Patient was found laying in bed on multiple occasions mumbling to himself. Patient got up to participate in snack and returned to bed. Patient took night medications without issue and asked for prn trazodone to be given at 2200. Nurse came back at 2200 and patient was asleep so prn was not given. Plan: Patient continues to require crisis interruption and stabilization with medication management and monitoring in a safe and therapeutic environment.
[2022-04-19] MEDS: nicotine 14mg patch - 24hr TD SCH (07:14)
[2022-04-19] MEDS: risperiDONE 2mg tablet PO SCH (07:14)
[2022-04-19 08:12] VITALS: BP 123/86
--- NOTE | 2022-04-19 12:14 | NUR ---
Discharge Note: Paperwork and follow up reviewed with the patient who is agreeable to discharge to the [facility]. Medications are sent with the patient. No s/sx acute distress. Escorted off the unit by staff with all of his belongings at 11:45 and is picked up by the county patient transportation driver. Discharged with the following instructions. Follow-Up: Patient has been scheduled/referred to the following providers for post-hospital discharge and aftercare treatment. Psychiatrist: While you are at [facility], you are encouraged to attend [facility] ACCESS clinic on Saturday-Saturday between 8:30AM and 3:00PM to establish outpatient mental health care. Primary Care Provider: Madelyn Becerra See flyer for information Discharge Address: [facility] [address] [place] [address] Transportation: [facility] Patient given community crisis services information and National suicide hotline handout. Please call [phone] for your second outpatient smoking cessation appointment. Resources for education regarding mental illness: [address] [phone] For urgent mental health crisis needs please contact Mobile Crisis Outreach Team Saturday through Saturday 8:30a to 5:00pm. [facility] [address] [place] [phone]
== END 2022-04-19 11:46 | DRG 750 ==
LOC: EDBD → ER 20:50 → ED HOLD 04-06 15:45 → ADULT MH 04-06 20:47
PROVIDERS: ADMIT Psychiatry & Neurology Psychiatry; ATTEND Psychiatry & Neurology Psychiatry
DX: F20.0 Paranoid schizophrenia (principal); Z59.00 Homelessness unspecified; D64.9 Anemia, unspecified; D72.829 Elevated white blood cell count, unspecified; F12.10 Cannabis abuse, uncomplicated; N28.9 Disorder of kidney and ureter, unspecified; Z20.822 Contact with and (suspected) exposure to COVID-19; Z71.6 Tobacco abuse counseling; Z85.51 Personal history of malignant neoplasm of bladder; Z72.0 Tobacco use
CPT/HCPCS: 36415; 71045; 80053; 80061; 80305; 80320; 81003; 82948; 83036; 84443; 85008; 85025; 87081; 96372; 99285; J1200; J1630; J2060; Q0177

== ENCOUNTER 2022-04-23 09:57 | Emergency (ER) | payer MEDICAID ==
[~2022-04-23] VITALS: Ht 182.9 cm; Wt 72.7 kg
[~2022-04-23 09:57] MED LIST: HYDR50TA65 PO; NICO-631 TD; NICO-907 BC; NO HOME MEDS; RISP4TAB73 PO; TRAZ150T78 PO
[2022-04-23 10:03] VITALS: BP 115/83
--- NOTE | 2022-04-23 10:06 | NUR ---
While still in triage room, pt states he would rather followup with [facility]. 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
== END 2022-04-23 10:08 | disposition left against medical advice (07) ==
LOC: ER 09:58
DX: F20.9 Schizophrenia, unspecified (principal); Z53.21 Procedure and treatment not carried out due to patient leaving prior to being seen by health care provider